=== PATIENT | female | born 1955 | race Caucasian/White ===

== ENCOUNTER 2016-06-16 00:27 | Observation (INO) | payer OTHER ==
[~2016-06-16] VITALS: Ht 170.2 cm; Wt 79.1 kg
[~2016-06-16 00:27] MED LIST: ADVIL200 MG PO; ASPIR-LOW81 MG PO; ATORVASTATIN CA80 MG PO; FOLIC ACID1 MG PO; LORTAB 5-325 M1 EACH PO; MOBIC15 MG PO; NOHOMEMEDS; THIAMINE HCL100 MG PO; TOPIRAMATE25 MG PO; TRIBENZOR 20-51 EAC1 PO; TYLENOL PM1 CAPLET PO
[2016-06-16 00:55] LABS: HEMATOCRIT 44.5 % (36.0-46.0); MCH 29.7 PG (29.0-34.0); MCHC 32.6 G/DL (30.0-36.0); MCV 91.2 FL (83-99); MEAN PLAT.VOLUME 8.5 uM^3 (9.5-12.4); PLATELET COUNT 599 K/uL (156-360); RBC DIS.WIDTH-CV 12.8 % (11.8-14.6); RBC DIS.WIDTH-SD 42.7 % (39-53); RED BLOOD COUNT 4.88 M/uL (3.80-5.20); WHITE BLOOD COUNT 10.3 K/uL (4.1-10.2)
[2016-06-16 01:20] LABS: CHLORIDE 94 mEq/L (99-109); POTASSIUM 4.1 mEq/L (3.7-5.4); SODIUM 127 mEq/L (136-147)
[2016-06-16 01:22] LABS: GLUCOSE 88 mg/dL (70-99)
[2016-06-16 01:23] LABS: ANION GAP 15 MEQ/L (2-14)
[2016-06-16 01:26] LABS: GFR ESTIMATE (CALCULATED) > 59 mL/min/
[2016-06-16 01:27] LABS: D-DIMER ELISA 0.27 mg/L FEU (< 0.57); UREA NITROGEN (BUN) 11 mg/dL (9-23)
[2016-06-16 01:35] LABS: TROP-I INTERPRETATION NEGATIVE; TROPONIN-I < 0.01 ng/mL (0.0-0.30)
[2016-06-16] MEDS ORDERED: ASPIR 8181 M1 PO (01:52)
[2016-06-16 07:28] LABS: TROP-I INTERPRETATION NEGATIVE; TROPONIN-I < 0.01 ng/mL (0.0-0.30)
[2016-06-16 12:36] VITALS: BP 137/92
[2016-06-16 13:30] LABS: TROP-I INTERPRETATION NEGATIVE; TROPONIN-I < 0.01 ng/mL (0.0-0.30)
[2016-06-16 15:37] VITALS: BP 192/112
[2016-06-16] MEDS ORDERED: HYDRALAZINE HCL25 MG PO (16:13)
[2016-06-16 16:46] VITALS: BP 133/77
[2016-06-16 16:54] LABS: ANION GAP 8 MEQ/L (2-14); CHLORIDE 98 MEQ/L (99-109); POTASSIUM 4.2 MEQ/L (3.7-5.4); SAMPLE HEMOLYSIS CHECK 0; SAMPLE ICTERIC CHECK 0; SAMPLE LIPEMIA CHECK 0; SODIUM 133 MEQ/L (136-147)
[2016-06-16 17:00] LABS: GFR ESTIMATE (CALCULATED) > 59 mL/min/; GLUCOSE 124 mg/dL (70-99); UREA NITROGEN (BUN) 13 mg/dL (9-23)
== END 2016-06-16 18:15 | disposition home or self-care (01) ==
LOC: EME → EDBD 00:27 → EME 00:27 → EDOF 02:44 → 5WEST 12:25
PROVIDERS: Emergency Medicine; Internal Medicine; Physician Assistant
DX: R07.89 Other chest pain (principal); I16.0 Hypertensive urgency; I10 Essential (primary) hypertension; E86.0 Dehydration; E87.1 Hypo-osmolality and hyponatremia; J45.909 Unspecified asthma, uncomplicated; F41.9 Anxiety disorder, unspecified; F17.210 Nicotine dependence, cigarettes, uncomplicated
CPT/HCPCS: 71020; 80048; 80048 91; 84484; 85027; 85379; 93005; 99281; 99285; G0378; J0360; J1644; Q0177

== ENCOUNTER 2017-03-23 17:21 | Inpatient (IN) | payer OTHER ==
[~2017-03-23] VITALS: Ht 170.2 cm; Wt 69.0 kg
[~2017-03-23 17:21] MED LIST changes: +ASPIR 8181 M1 PO; +HYDRALAZINE HCL25 MG PO
[2017-03-23 18:38] LABS: HEMATOCRIT 50.8 % (36.0-46.0); HEMOGLOBIN 16.9 G/DL (11.9-15.5); MCH 30.2 PG (29.0-34.0); MCHC 33.3 G/DL (30.0-36.0); MCV 90.9 FL (83-99); PLATELET COUNT 937 K/uL (156-360); RBC DIS.WIDTH-CV 13.3 % (11.8-14.6); RBC DIS.WIDTH-SD 44.6 % (39-53); RED BLOOD COUNT 5.59 M/uL (3.80-5.20); WHITE BLOOD COUNT 14.5 K/uL (4.1-10.2)
[2017-03-23 18:45] LABS: CHLORIDE 95 mEq/L (99-109); POTASSIUM 3.2 mEq/L (3.7-5.4); SODIUM 135 mEq/L (136-147)
[2017-03-23 18:47] LABS: GLUCOSE 183 mg/dL (70-99)
[2017-03-23 18:51] LABS: GFR ESTIMATE (CALCULATED) > 59 mL/min/
[2017-03-23 18:52] LABS: UREA NITROGEN (BUN) 15 mg/dL (9-23)
[2017-03-23 22:05] LABS: INTER. NORMALIZED RATIO 1.1
[2017-03-23 22:08] LABS: PTT 36.8 SEC (25-37)
[2017-03-23 22:19] LABS: TROP-I INTERPRETATION NEGATIVE; TROPONIN-I 0.01 ng/mL (0.0-0.30)
[2017-03-23 22:49] LABS: APPEARANCE CLOUDY ((CLEAR)); BILIRUBIN SMALL; BLOOD NEGATIVE; COLOR AMBER ((YELLOW)); GLUCOSE (STRIP) NEGATIVE; KETONES 20; LEUKOCYTES MODERATE; NITRITE NEGATIVE; PROTEIN (STRIP) 100; SPECIFIC GRAVITY 1.023 (1.000-1.030)
[2017-03-23 23:13] LABS: RED BLOOD CELLS 0-5 /HPF (0-5)
[2017-03-23 23:14] LABS: BACTERIA 1+ /HPF; CALCIUM OXALATE CRYSTALS RARE /HPF; EPITHELIAL CELLS RARE /HPF; MUCUS NONE SEEN /LPF; UCUL ADDED? YES
[2017-03-23 23:15] LABS: TRIPLE PHOSPHATE CRYSTALS RARE /HPF
[2017-03-23 23:19] LABS: HDL CHOLESTEROL 72 MG/DL (Desirable>=50); LDL CHOLESTEROL 167 mg/dL (Desirable<100); NON-HDL CHOLESTEROL 185 mg/dL (Desirable<160); TOTAL CHOLESTEROL 257 mg/dL (Desirable<200); TRIGLYCERIDES 88 MG/DL (Normal: <150)
[2017-03-23] MEDS ORDERED: ADVIL,NUPRIN,M200 MG PO (23:37)
[2017-03-23] MEDS ORDERED: [UNRECOGNIZED DRUG - OTHER] PO (23:37)
[2017-03-24 01:28] LABS: MAGNESIUM 2.1 mg/dl (1.3-2.7)
[2017-03-24 01:44] LABS: SERUM ETHYL ALCOHOL < 10 mg/dL
[2017-03-24 03:09] LABS: HEMATOCRIT 47.7 % (36.0-46.0); HEMOGLOBIN 16.1 G/DL (11.9-15.5); MCH 30.1 PG (29.0-34.0); MCHC 33.8 G/DL (30.0-36.0); MCV 89.3 FL (83-99); PLATELET COUNT 885 K/uL (156-360); RBC DIS.WIDTH-CV 13.4 % (11.8-14.6); RBC DIS.WIDTH-SD 43.8 % (39-53); RED BLOOD COUNT 5.34 M/uL (3.80-5.20); WHITE BLOOD COUNT 17.2 K/uL (4.1-10.2)
[2017-03-24 03:19] LABS: CHLORIDE 97 mEq/L (99-109); POTASSIUM 3.7 mEq/L (3.7-5.4); SODIUM 134 mEq/L (136-147)
[2017-03-24 03:21] LABS: GLUCOSE 125 mg/dL (70-99)
[2017-03-24 03:24] LABS: CREATININE 0.8 mg/dL (0.6-1.3); GFR ESTIMATE (CALCULATED) > 59 mL/min/
[2017-03-24 03:25] LABS: UREA NITROGEN (BUN) 18 mg/dL (9-23)
[2017-03-24 04:59] VITALS: BP 164/95
[2017-03-24 06:55] LABS: Estimated Average Glucose 105 mg/dL (70-123); HEMOGLOBIN A1c (GLYCOHEMOGLOB) 5.3 % HGB (Below 5.7)
[2017-03-24 07:19] VITALS: BP 164/107
[2017-03-24 12:25] VITALS: BP 160/102
[2017-03-24 16:11] VITALS: BP 171/106
[2017-03-24 19:40] VITALS: BP 132/80
[2017-03-24 23:58] VITALS: BP 183/131
[2017-03-25 01:24] VITALS: BP 118/80
[2017-03-25 03:33] VITALS: BP 111/56
[2017-03-25 08:00] VITALS: BP 185/90
[2017-03-25 08:13] LABS: HEMATOCRIT 46.7 % (36.0-46.0); HEMOGLOBIN 15.7 G/DL (11.9-15.5); MCH 30.5 PG (29.0-34.0); MCHC 33.6 G/DL (30.0-36.0); MCV 90.7 FL (83-99); PLATELET COUNT 788 K/uL (156-360); RBC DIS.WIDTH-CV 13.4 % (11.8-14.6); RBC DIS.WIDTH-SD 45.5 % (39-53); RED BLOOD COUNT 5.15 M/uL (3.80-5.20)
[2017-03-25 08:51] LABS: CHLORIDE 97 MEQ/L (99-109); CREATININE 0.8 MG/DL (0.6-1.3); GFR ESTIMATE (CALCULATED) > 59 mL/min/; GLUCOSE 105 mg/dL (70-99); POTASSIUM 4.4 MEQ/L (3.7-5.4); SODIUM 131 MEQ/L (136-147); UREA NITROGEN (BUN) 23 mg/dL (9-23)
[2017-03-25 16:00] VITALS: BP 143/93
[2017-03-25 20:34] VITALS: BP 182/100
[2017-03-25 23:43] VITALS: BP 163/95
[2017-03-26 03:58] VITALS: BP 137/93
[2017-03-26 08:00] VITALS: BP 174/97
[2017-03-26 09:59] LABS: BASOPHIL (%) 1.3 % (0-1); BASOPHIL COUNT 0.1 K/uL (0-0.1); EOSINOPHIL (%) 2.6 % (0-5); EOSINOPHIL COUNT 0.3 K/uL (0-0.3); HEMATOCRIT 46.3 % (36.0-46.0); HEMOGLOBIN 15.4 G/DL (11.9-15.5); IMMATURE GRANULOCYTE (%) 0.5 % (0.0-0.7); LYMPHOCYTE (%) 23.9 % (15-42); LYMPHOCYTE COUNT 2.6 K/uL (1.0-2.8); MCH 30.3 PG (29.0-34.0); MCHC 33.3 G/DL (30.0-36.0); MCV 91.1 FL (83-99); MONOCYTE (%) 5.3 % (3-12); MONOCYTE COUNT 0.6 K/uL (0-0.8); NEUTROPHIL (%) 66.4 % (45-76); NEUTROPHIL COUNT 7.3 K/uL (1.8-6.4); PLATELET COUNT 816 K/uL (156-360); RBC DIS.WIDTH-CV 13.5 % (11.8-14.6); RBC DIS.WIDTH-SD 45.5 % (39-53); RED BLOOD COUNT 5.08 M/uL (3.80-5.20)
[2017-03-26 12:00] VITALS: BP 135/92
[2017-03-26 16:00] VITALS: BP 185/96
[2017-03-26 16:47] VITALS: BP 192/117
[2017-03-26 20:11] VITALS: BP 175/102
[2017-03-27 00:06] VITALS: BP 211/122
[2017-03-27 02:11] VITALS: BP 167/116
[2017-03-27 04:13] VITALS: BP 116/88
[2017-03-27 06:13] LABS: BASOPHIL COUNT 0.1 K/uL (0-0.1); EOSINOPHIL (%) 3.1 % (0-5); EOSINOPHIL COUNT 0.4 K/uL (0-0.3); HEMATOCRIT 45.8 % (36.0-46.0); HEMOGLOBIN 14.9 G/DL (11.9-15.5); IMMATURE GRANULOCYTE (%) 0.7 % (0.0-0.7); LYMPHOCYTE (%) 26.9 % (15-42); LYMPHOCYTE COUNT 3.6 K/uL (1.0-2.8); MCH 29.7 PG (29.0-34.0); MCHC 32.5 G/DL (30.0-36.0); MCV 91.4 FL (83-99); MONOCYTE (%) 6.3 % (3-12); MONOCYTE COUNT 0.9 K/uL (0-0.8); NEUTROPHIL COUNT 8.3 K/uL (1.8-6.4); PLATELET COUNT 839 K/uL (156-360); RBC DIS.WIDTH-CV 13.4 % (11.8-14.6); RED BLOOD COUNT 5.01 M/uL (3.80-5.20); WHITE BLOOD COUNT 13.4 K/uL (4.1-10.2)
[2017-03-27 06:39] LABS: CHLORIDE 98 MEQ/L (99-109); CREATININE 0.9 MG/DL (0.6-1.3); GFR ESTIMATE (CALCULATED) > 59 mL/min/; GLUCOSE 100 mg/dL (70-99); POTASSIUM 3.8 MEQ/L (3.7-5.4); SODIUM 134 MEQ/L (136-147); UREA NITROGEN (BUN) 25 mg/dL (9-23)
[2017-03-27 07:10] VITALS: BP 136/81
[2017-03-27 11:00] VITALS: BP 131/85
[2017-03-28 00:04] VITALS: BP 175/85
[2017-03-28 07:05] VITALS: BP 129/87
[2017-03-28] MEDS ORDERED: Thiamine,Vitamin B1 PO (10:26)
[2017-03-28] MEDS ORDERED: ATORVASTATIN CA40 MG PO (10:26)
[2017-03-28] MEDS ORDERED: FOLIC ACID1 MG PO (10:26)
[2017-03-28] MEDS ORDERED: THERAGRAN1 TABLET PO (10:26)
[2017-03-28] MEDS ORDERED: METOPROLOL SUCC25 MG PO (10:26)
[2017-03-28] MEDS ORDERED: HYDREA500 MG PO ×2 (10:26)
[2017-03-28 11:07] LABS: JAK2 Mutation Result DETECTED (())
[2017-03-28] MEDS ORDERED: NICOTINE PATCH1 EAC1 TD (12:51)
== END 2017-03-28 11:46 | DRG 65 ==
LOC: RME 17:21 → EME 17:21 → 5SOUTH 03-24 00:38 → EDOF 03-24 00:38 → ENRESERV 03-24 00:40 → 5SOUTH 03-24 04:29
PROVIDERS: Hospitalist; Internal Medicine; Internal Medicine Hematology & Oncology; Nurse Practitioner Family; Physician Assistant Medical
DX: I63.311 Cerebral infarction due to thrombosis of right middle cerebral artery (principal); G81.94 Hemiplegia, unspecified affecting left nondominant side; I10 Essential (primary) hypertension; J44.9 Chronic obstructive pulmonary disease, unspecified; R29.810 Facial weakness; F10.20 Alcohol dependence, uncomplicated; F17.210 Nicotine dependence, cigarettes, uncomplicated; D75.1 Secondary polycythemia; E78.5 Hyperlipidemia, unspecified; E87.6 Hypokalemia; Z79.82 Long term (current) use of aspirin; Z91.19 Patient's noncompliance with other medical treatment and regimen; Z91.14 Patient's other noncompliance with medication regimen; C94.6 Myelodysplastic disease, not elsewhere classified; F41.9 Anxiety disorder, unspecified; D47.3 Essential (hemorrhagic) thrombocythemia
CPT/HCPCS: 70450; 70551; 71045; 71046; 73030; 73502; 73560; 80048; 80061; 81003; 81270 90; 83036; 83605; 83735; 84484; 85025; 85027; 85379; 85610; 85730; 87086; 92526 GN; 92610 GN; 93005; 93306; 93880; 93971; 97530 GO; 97530 GP; 99281; 99285; G0480; J0360; J0696; J1644; J2060; J2405

== ENCOUNTER 2017-03-28 12:06 | Inpatient (IN) | payer OTHER ==
[~2017-03-28] VITALS: Ht 165.1 cm; Wt 70.8 kg
[~2017-03-28 12:06] MED LIST changes: +ADVIL,NUPRIN,M200 MG PO; +ATORVASTATIN CA40 MG PO; +HYDREA500 MG PO; +METOPROLOL SUCC25 MG PO; +THERAGRAN1 TABLET PO; +Thiamine,Vitamin B1 PO; +[UNRECOGNIZED DRUG - OTHER] PO
[2017-03-28 12:20] VITALS: BP 134/101
[2017-03-28] MEDS ORDERED: NICOTINE PATCH1 EAC1 TD (12:51)
[2017-03-28 14:33] LABS: BASOPHIL (%) 0.8 % (0-1); BASOPHIL COUNT 0.1 K/uL (0-0.1); EOSINOPHIL (%) 2.4 % (0-5); EOSINOPHIL COUNT 0.3 K/uL (0-0.3); HEMATOCRIT 45.2 % (36.0-46.0); HEMOGLOBIN 14.7 G/DL (11.9-15.5); IMMATURE GRANULOCYTE (%) 0.4 % (0.0-0.7); LYMPHOCYTE (%) 14.8 % (15-42); LYMPHOCYTE COUNT 1.6 K/uL (1.0-2.8); MCH 29.4 PG (29.0-34.0); MCHC 32.5 G/DL (30.0-36.0); MCV 90.4 FL (83-99); MONOCYTE (%) 4.5 % (3-12); MONOCYTE COUNT 0.5 K/uL (0-0.8); NEUTROPHIL (%) 77.1 % (45-76); NEUTROPHIL COUNT 8.3 K/uL (1.8-6.4); PLATELET COUNT 841 K/uL (156-360); RBC DIS.WIDTH-CV 13.3 % (11.8-14.6); RBC DIS.WIDTH-SD 43.8 % (39-53); WHITE BLOOD COUNT 10.7 K/uL (4.1-10.2)
[2017-03-28 15:53] VITALS: BP 138/84
[2017-03-28 18:21] LABS: APPEARANCE SL.HAZY ((CLEAR)); BILIRUBIN NEGATIVE; BLOOD NEGATIVE; COLOR YELLOW ((YELLOW)); GLUCOSE (STRIP) NEGATIVE; KETONES NEGATIVE; LEUKOCYTES MODERATE; NITRITE NEGATIVE; PROTEIN (STRIP) NEGATIVE; SPECIFIC GRAVITY 1.021 (1.000-1.030)
[2017-03-28 18:25] LABS: BACTERIA RARE /HPF; EPITHELIAL CELLS 2+ /HPF; HYALINE CASTS 0-5 /LPF; MUCUS TRACE /LPF; RED BLOOD CELLS 0-5 /HPF (0-5); WHITE BLOOD CELLS TNTC /HPF (0-5)
[2017-03-28 23:14] VITALS: BP 176/94
[2017-03-29 05:03] VITALS: BP 135/74
[2017-03-29 05:43] LABS: HEMATOCRIT 44.3 % (36.0-46.0); HEMOGLOBIN 14.7 G/DL (11.9-15.5); MCH 30.2 PG (29.0-34.0); MCHC 33.2 G/DL (30.0-36.0); PLATELET COUNT 735 K/uL (156-360); RBC DIS.WIDTH-CV 13.5 % (11.8-14.6); RBC DIS.WIDTH-SD 44.2 % (39-53); RED BLOOD COUNT 4.87 M/uL (3.80-5.20); WHITE BLOOD COUNT 10.8 K/uL (4.1-10.2)
[2017-03-29 06:08] LABS: ALBUMIN 3.6 G/DL (3.2-4.8); ALKALINE PHOSPHATASE 60 IU/L (3-129); ALT (GPT) 20 IU/L (3-49); AST (GOT) 30 IU/L (2-34); CHLORIDE 99 MEQ/L (99-109); CREATININE 0.8 MG/DL (0.6-1.3); GFR ESTIMATE (CALCULATED) > 59 mL/min/; GLUCOSE 94 mg/dL (70-99); POTASSIUM 4.1 MEQ/L (3.7-5.4); SODIUM 133 MEQ/L (136-147); TOTAL BILIRUBIN 0.5 MG/DL (0.0-1.0); TOTAL PROTEIN 6.1 G/DL (6.4-8.3); UREA NITROGEN (BUN) 24 mg/dL (9-23)
[2017-03-29 16:39] VITALS: BP 184/104
[2017-03-29 17:07] VITALS: BP 171/93
[2017-03-29 18:38] VITALS: BP 150/92
[2017-03-30 05:05] VITALS: BP 140/72
[2017-03-30 15:52] VITALS: BP 164/79
[2017-03-31 05:02] VITALS: BP 139/73
[2017-03-31 08:47] LABS: BASOPHIL COUNT 0.1 K/uL (0-0.1); EOSINOPHIL (%) 2.4 % (0-5); EOSINOPHIL COUNT 0.2 K/uL (0-0.3); HEMATOCRIT 43.8 % (36.0-46.0); HEMOGLOBIN 14.6 G/DL (11.9-15.5); IMMATURE GRANULOCYTE (%) 0.3 % (0.0-0.7); LYMPHOCYTE (%) 32.2 % (15-42); MCH 30.8 PG (29.0-34.0); MCHC 33.3 G/DL (30.0-36.0); MCV 92.4 FL (83-99); MONOCYTE (%) 4.5 % (3-12); MONOCYTE COUNT 0.3 K/uL (0-0.8); NEUTROPHIL (%) 59.6 % (45-76); NEUTROPHIL COUNT 3.7 K/uL (1.8-6.4); PLATELET COUNT 830 K/uL (156-360); RBC DIS.WIDTH-CV 13.6 % (11.8-14.6); RBC DIS.WIDTH-SD 45.4 % (39-53); RED BLOOD COUNT 4.74 M/uL (3.80-5.20); WHITE BLOOD COUNT 6.2 K/uL (4.1-10.2)
[2017-03-31 16:35] VITALS: BP 170/102
[2017-03-31 17:28] VITALS: BP 164/98
[2017-04-01 05:18] VITALS: BP 119/81
[2017-04-01 08:50] LABS: BASOPHIL (%) 0.9 % (0-1); BASOPHIL COUNT 0.1 K/uL (0-0.1); EOSINOPHIL COUNT 0.1 K/uL (0-0.3); HEMATOCRIT 42.7 % (36.0-46.0); HEMOGLOBIN 13.9 G/DL (11.9-15.5); IMMATURE GRANULOCYTE (%) 0.4 % (0.0-0.7); LYMPHOCYTE (%) 30.5 % (15-42); LYMPHOCYTE COUNT 2.1 K/uL (1.0-2.8); MCH 30.2 PG (29.0-34.0); MCHC 32.6 G/DL (30.0-36.0); MCV 92.8 FL (83-99); MONOCYTE (%) 3.4 % (3-12); MONOCYTE COUNT 0.2 K/uL (0-0.8); NEUTROPHIL (%) 62.8 % (45-76); NEUTROPHIL COUNT 4.3 K/uL (1.8-6.4); PLATELET COUNT 787 K/uL (156-360); RBC DIS.WIDTH-CV 13.6 % (11.8-14.6); RBC DIS.WIDTH-SD 45.1 % (39-53); WHITE BLOOD COUNT 6.9 K/uL (4.1-10.2)
[2017-04-01 15:00] VITALS: BP 178/104
[2017-04-02 05:56] VITALS: BP 114/76
[2017-04-02 06:08] LABS: BASOPHIL (%) 0.9 % (0-1); BASOPHIL COUNT 0.1 K/uL (0-0.1); EOSINOPHIL (%) 1.7 % (0-5); EOSINOPHIL COUNT 0.1 K/uL (0-0.3); HEMATOCRIT 39.4 % (36.0-46.0); IMMATURE GRANULOCYTE (%) 1.1 % (0.0-0.7); LYMPHOCYTE (%) 25.2 % (15-42); LYMPHOCYTE COUNT 1.6 K/uL (1.0-2.8); MONOCYTE COUNT 0.1 K/uL (0-0.8); NEUTROPHIL (%) 69.1 % (45-76); NEUTROPHIL COUNT 4.4 K/uL (1.8-6.4); PLATELET COUNT 762 K/uL (156-360); RBC DIS.WIDTH-CV 13.3 % (11.8-14.6); RBC DIS.WIDTH-SD 43.1 % (39-53); RED BLOOD COUNT 4.33 M/uL (3.80-5.20); WHITE BLOOD COUNT 6.4 K/uL (4.1-10.2)
[2017-04-02 15:34] VITALS: BP 185/104
[2017-04-02 16:00] VITALS: BP 140/75
[2017-04-03 05:50] VITALS: BP 127/72
[2017-04-03 07:53] LABS: HEMATOCRIT 40.3 % (36.0-46.0); MCH 29.4 PG (29.0-34.0); MCHC 32.3 G/DL (30.0-36.0); MCV 91.2 FL (83-99); PLATELET COUNT 628 K/uL (156-360); RBC DIS.WIDTH-CV 13.5 % (11.8-14.6); RBC DIS.WIDTH-SD 43.4 % (39-53); RED BLOOD COUNT 4.42 M/uL (3.80-5.20); WHITE BLOOD COUNT 5.2 K/uL (4.1-10.2)
[2017-04-03 08:17] LABS: BASOPHIL COUNT 0.1 K/uL (0-0.1); EOSINOPHIL (%) 1.9 % (0-5); EOSINOPHIL COUNT 0.1 K/uL (0-0.3); IMMATURE GRANULOCYTE (%) 0.4 % (0.0-0.7); LYMPHOCYTE (%) 28.9 % (15-42); LYMPHOCYTE COUNT 1.5 K/uL (1.0-2.8); MONOCYTE (%) 2.1 % (3-12); MONOCYTE COUNT 0.1 K/uL (0-0.8); NEUTROPHIL (%) 65.7 % (45-76); NEUTROPHIL COUNT 3.4 K/uL (1.8-6.4)
[2017-04-03 15:39] VITALS: BP 144/83
[2017-04-04 06:15] VITALS: BP 135/85
[2017-04-04 06:32] LABS: HEMATOCRIT 39.1 % (36.0-46.0); HEMOGLOBIN 12.6 G/DL (11.9-15.5); MCH 29.5 PG (29.0-34.0); MCHC 32.2 G/DL (30.0-36.0); MCV 91.6 FL (83-99); PLATELET COUNT 674 K/uL (156-360); RBC DIS.WIDTH-CV 13.5 % (11.8-14.6); RED BLOOD COUNT 4.27 M/uL (3.80-5.20); WHITE BLOOD COUNT 4.2 K/uL (4.1-10.2)
[2017-04-04 07:06] LABS: ABS NEUTROPHIL COUNT 2.4; ANISOCYTOSIS 1+; ATYPICAL LYMPHOCYTE 17.4 %; BASOPHILS 0.9 %; EOSINOPHIL ABS CT 0.1; EOSINOPHILS 1.7 % (0-5.0); LYMPHOCYTES 21.7 % (15.0-45.0); MACROCYTES 1+; MONOCYTES 0.9 % (0-9.0); PLAT.SUFFICIENCY INCREASED; SEG.NEUTROPHILS 57.4 % (46.0-76.0)
[2017-04-04 15:13] VITALS: BP 178/78
[2017-04-04 17:53] VITALS: BP 160/72
[2017-04-05 05:40] VITALS: BP 143/89
[2017-04-05 05:42] LABS: HEMATOCRIT 37.5 % (36.0-46.0); HEMOGLOBIN 12.5 G/DL (11.9-15.5); MCH 30.7 PG (29.0-34.0); MCHC 33.3 G/DL (30.0-36.0); MCV 92.1 FL (83-99); PLATELET COUNT 616 K/uL (156-360); RBC DIS.WIDTH-CV 13.7 % (11.8-14.6); RED BLOOD COUNT 4.07 M/uL (3.80-5.20)
[2017-04-05 06:15] LABS: ABS NEUTROPHIL COUNT 2.8; ANISOCYTOSIS 1+; ATYPICAL LYMPHOCYTE 7.9 %; BASOPHILS 0.9 %; EOSINOPHIL ABS CT 0; EOSINOPHILS 0.9 % (0-5.0); LYMPHOCYTES 34.2 % (15.0-45.0); NUCLEATED RBC'S 0.9; PLAT.SUFFICIENCY INCREASED; SEG.NEUTROPHILS 56.1 % (46.0-76.0)
[2017-04-05 16:00] VITALS: BP 152/78
[2017-04-05 21:00] VITALS: BP 166/93
[2017-04-06] VITALS (7 sets, daily range): BP systolic 118–183; BP diastolic 71–100
[2017-04-06 04:51] LABS: HEMOGLOBIN 12.9 G/DL (11.9-15.5); MCH 31.1 PG (29.0-34.0); MCHC 33.9 G/DL (30.0-36.0); MCV 91.6 FL (83-99); PLATELET COUNT 540 K/uL (156-360); RBC DIS.WIDTH-CV 13.7 % (11.8-14.6); RBC DIS.WIDTH-SD 43.1 % (39-53); RED BLOOD COUNT 4.15 M/uL (3.80-5.20); WHITE BLOOD COUNT 3.7 K/uL (4.1-10.2)
[2017-04-06 05:39] LABS: BASOPHIL (%) 0.8 % (0-1); EOSINOPHIL (%) 1.6 % (0-5); EOSINOPHIL COUNT 0.1 K/uL (0-0.3); IMMATURE GRANULOCYTE (%) 0.3 % (0.0-0.7); LYMPHOCYTE (%) 46.5 % (15-42); LYMPHOCYTE COUNT 1.7 K/uL (1.0-2.8); MONOCYTE (%) 1.6 % (3-12); MONOCYTE COUNT 0.1 K/uL (0-0.8); NEUTROPHIL (%) 49.2 % (45-76); NEUTROPHIL COUNT 1.8 K/uL (1.8-6.4)
[2017-04-07 05:51] VITALS: BP 142/90
[2017-04-07 15:07] VITALS: BP 146/88
[2017-04-08 04:00] VITALS: BP 142/66
[2017-04-08 05:32] VITALS: BP 131/69
[2017-04-08 15:07] VITALS: BP 176/106
[2017-04-08 15:15] VITALS: BP 160/100
[2017-04-08 21:36] VITALS: BP 160/74
[2017-04-09 04:46] VITALS: BP 162/98
[2017-04-09 05:46] LABS: HEMATOCRIT 36.1 % (36.0-46.0); HEMOGLOBIN 11.7 G/DL (11.9-15.5); MCH 29.7 PG (29.0-34.0); MCHC 32.4 G/DL (30.0-36.0); MCV 91.6 FL (83-99); RBC DIS.WIDTH-CV 13.8 % (11.8-14.6); RBC DIS.WIDTH-SD 42.5 % (39-53); RED BLOOD COUNT 3.94 M/uL (3.80-5.20); WHITE BLOOD COUNT 2.5 K/uL (4.1-10.2)
[2017-04-09 06:15] LABS: ALBUMIN 3.6 G/DL (3.2-4.8); ALKALINE PHOSPHATASE 93 IU/L (3-129); ALT (GPT) 63 IU/L (3-49); AST (GOT) 50 IU/L (2-34); CHLORIDE 102 MEQ/L (99-109); CREATININE 0.7 MG/DL (0.6-1.3); GFR ESTIMATE (CALCULATED) > 59 mL/min/; GLUCOSE 99 mg/dL (70-99); POTASSIUM 3.8 MEQ/L (3.7-5.4); SODIUM 136 MEQ/L (136-147); TOTAL BILIRUBIN 0.5 MG/DL (0.0-1.0); TOTAL PROTEIN 5.6 G/DL (6.4-8.3); UREA NITROGEN (BUN) 16 mg/dL (9-23)
[2017-04-09 06:26] LABS: ABS NEUTROPHIL COUNT 0.7; ANISOCYTOSIS 1+; ATYPICAL LYMPHOCYTE 7.2 %; BASOPHILS 0.9 %; EOSINOPHIL ABS CT 0; MONOCYTES 0.9 % (0-9.0); NUCLEATED RBC'S 1.8; PLAT.SUFFICIENCY INCREASED; PLATELET COUNT 378 K/uL (156-360); SMUDGE CELLS 8.1
[2017-04-09 06:27] LABS: LYMPHOCYTES 61.3 % (15.0-45.0); SEG.NEUTROPHILS 29.7 % (46.0-76.0)
[2017-04-09 11:58] VITALS: BP 191/102
[2017-04-09 13:21] VITALS: BP 192/105
[2017-04-09 14:02] VITALS: BP 146/82
[2017-04-09 15:49] VITALS: BP 142/78
[2017-04-10 06:03] VITALS: BP 162/93
[2017-04-10 06:09] LABS: CHLORIDE 104 MEQ/L (99-109); CREATININE 0.6 MG/DL (0.6-1.3); GFR ESTIMATE (CALCULATED) > 59 mL/min/; GLUCOSE 93 mg/dL (70-99); POTASSIUM 3.4 MEQ/L (3.7-5.4); SODIUM 137 MEQ/L (136-147); UREA NITROGEN (BUN) 14 mg/dL (9-23)
[2017-04-10 09:35] VITALS: BP 132/76
[2017-04-10 15:00] VITALS: BP 130/94
[2017-04-11 06:05] LABS: BASOPHIL (%) 1.1 % (0-1); EOSINOPHIL (%) 1.5 % (0-5); HEMATOCRIT 35.6 % (36.0-46.0); HEMOGLOBIN 11.6 G/DL (11.9-15.5); IMMATURE GRANULOCYTE (%) 0.4 % (0.0-0.7); LYMPHOCYTE (%) 67.3 % (15-42); LYMPHOCYTE COUNT 1.8 K/uL (1.0-2.8); MCH 29.8 PG (29.0-34.0); MCHC 32.6 G/DL (30.0-36.0); MCV 91.5 FL (83-99); MONOCYTE (%) 8.1 % (3-12); MONOCYTE COUNT 0.2 K/uL (0-0.8); NEUTROPHIL (%) 21.6 % (45-76); NEUTROPHIL COUNT 0.6 K/uL (1.8-6.4); RBC DIS.WIDTH-CV 14.2 % (11.8-14.6); RBC DIS.WIDTH-SD 42.5 % (39-53); RED BLOOD COUNT 3.89 M/uL (3.80-5.20); WHITE BLOOD COUNT 2.7 K/uL (4.1-10.2)
[2017-04-11 06:22] VITALS: BP 125/80
[2017-04-11 06:52] LABS: PLAT.SUFFICIENCY ADEQUATE
[2017-04-11 06:53] LABS: PLATELET COUNT 257 K/uL (156-360)
[2017-04-11 16:38] VITALS: BP 180/98
[2017-04-12 05:16] VITALS: BP 122/70
[2017-04-12 15:00] VITALS: BP 168/92
[2017-04-12 15:33] LABS: CHLORIDE 102 MEQ/L (99-109); CREATININE 0.6 MG/DL (0.6-1.3); GFR ESTIMATE (CALCULATED) > 59 mL/min/; GLUCOSE 102 mg/dL (70-99); SODIUM 134 MEQ/L (136-147); UREA NITROGEN (BUN) 14 mg/dL (9-23)
[2017-04-12 15:35] LABS: POTASSIUM 4.1 MEQ/L (3.7-5.4)
[2017-04-12 17:45] VITALS: BP 152/90
[2017-04-13 05:35] VITALS: BP 141/82
[2017-04-13 06:06] LABS: BASOPHIL (%) 1.3 % (0-1); EOSINOPHIL COUNT 0.1 K/uL (0-0.3); HEMATOCRIT 36.6 % (36.0-46.0); IMMATURE GRANULOCYTE (%) 0.3 % (0.0-0.7); LYMPHOCYTE (%) 61.4 % (15-42); LYMPHOCYTE COUNT 1.9 K/uL (1.0-2.8); MCHC 32.8 G/DL (30.0-36.0); MCV 91.5 FL (83-99); MONOCYTE (%) 10.2 % (3-12); MONOCYTE COUNT 0.3 K/uL (0-0.8); NEUTROPHIL (%) 24.8 % (45-76); NEUTROPHIL COUNT 0.8 K/uL (1.8-6.4); PLATELET COUNT 189 K/uL (156-360); RBC DIS.WIDTH-CV 14.1 % (11.8-14.6); RBC DIS.WIDTH-SD 42.2 % (39-53)
[2017-04-13 15:51] VITALS: BP 130/70
[2017-04-14 05:53] VITALS: BP 117/62
[2017-04-14] MEDS ORDERED: LOPRESSOR25 MG PO (11:35)
[2017-04-14] MEDS ORDERED: HEPARIN SO5000 UNIT4 SC (11:35)
[2017-04-14] MEDS ORDERED: IBUPROFEN400 MG PO (11:36)
[2017-04-14] MEDS ORDERED: LISINOPRIL5 MG PO (11:36)
[2017-04-14] MEDS ORDERED: ESCITALOPRAM OX10 MG PO (11:37)
[2017-04-14] MEDS ORDERED: TRAZODONE HCL50 MG PO (11:37)
[2017-04-14] MEDS ORDERED: DOCUSATE SODIU100 MG PO (11:37)
[2017-04-14] MEDS ORDERED: TYLENOL REGULA325 MG PO (11:37)
[2017-04-14] MEDS ORDERED: Thiamine,Vitamin B1 PO (11:38)
[2017-04-14 15:13] VITALS: BP 162/90
[2017-04-15 05:05] VITALS: BP 128/83
[2017-04-15 05:22] LABS: BASOPHIL (%) 1.2 % (0-1); BASOPHIL COUNT 0.1 K/uL (0-0.1); EOSINOPHIL (%) 2.4 % (0-5); EOSINOPHIL COUNT 0.1 K/uL (0-0.3); HEMOGLOBIN 11.8 G/DL (11.9-15.5); IMMATURE GRANULOCYTE (%) 0.5 % (0.0-0.7); LYMPHOCYTE (%) 50.2 % (15-42); LYMPHOCYTE COUNT 2.1 K/uL (1.0-2.8); MCH 30.7 PG (29.0-34.0); MCHC 33.7 G/DL (30.0-36.0); MCV 91.1 FL (83-99); MONOCYTE COUNT 0.5 K/uL (0-0.8); NEUTROPHIL (%) 33.7 % (45-76); NEUTROPHIL COUNT 1.4 K/uL (1.8-6.4); PLATELET COUNT 143 K/uL (156-360); RBC DIS.WIDTH-CV 14.4 % (11.8-14.6); RBC DIS.WIDTH-SD 42.5 % (39-53); RED BLOOD COUNT 3.84 M/uL (3.80-5.20); WHITE BLOOD COUNT 4.2 K/uL (4.1-10.2)
[2017-04-15 15:00] VITALS: BP 158/82
[2017-04-16 04:19] VITALS: BP 123/58
[2017-04-16 05:14] LABS: CHLORIDE 100 mEq/L (99-109); POTASSIUM 4.3 mEq/L (3.7-5.4); SODIUM 134 mEq/L (136-147)
[2017-04-16 05:16] LABS: GLUCOSE 92 mg/dL (70-99)
[2017-04-16 05:20] LABS: CREATININE 0.7 mg/dL (0.6-1.3); GFR ESTIMATE (CALCULATED) > 59 mL/min/
[2017-04-16 05:21] LABS: UREA NITROGEN (BUN) 8 mg/dL (9-23)
== END 2017-04-16 11:40 | DRG 57 ==
LOC: 3WEST 12:06 → ENPENDDIS 04-12 → 3WEST 04-16 07:02
PROVIDERS: Internal Medicine; Internal Medicine Cardiovascular Disease; Internal Medicine Hematology & Oncology; Physical Medicine & Rehabilitation Pain Medicine
PROC: F07M0ZZ Range of Motion and Joint Mobility Treatment of Musculoskeletal System - Whole Body (ICD-10-PCS; principal; 2017-03-28)
DX: I69.354 Hemiplegia and hemiparesis following cerebral infarction affecting left non-dominant side (principal); R26.9 Unspecified abnormalities of gait and mobility; E87.1 Hypo-osmolality and hyponatremia; D45 Polycythemia vera; E87.6 Hypokalemia; M79.662 Pain in left lower leg; R05 Cough; E78.5 Hyperlipidemia, unspecified; I10 Essential (primary) hypertension; D72.829 Elevated white blood cell count, unspecified; F41.8 Other specified anxiety disorders; M26.609 Unspecified temporomandibular joint disorder, unspecified side; H54.8 Legal blindness, as defined in USA; F10.20 Alcohol dependence, uncomplicated; R32 Unspecified urinary incontinence; M79.673 Pain in unspecified foot; M79.676 Pain in unspecified toe(s); F17.210 Nicotine dependence, cigarettes, uncomplicated; M25.512 Pain in left shoulder; Z79.82 Long term (current) use of aspirin; Z86.73 Personal history of transient ischemic attack (TIA), and cerebral infarction without residual deficits
CPT/HCPCS: 71045; 73030; 80048; 80053; 81003; 85025; 85027; 87086; 93005; 93971; 97110 GO; 97112 GO; 97530 GP; J1644

== ENCOUNTER 2017-05-12 22:47 | Inpatient (IN) | payer OTHER ==
[~2017-05-12] VITALS: Ht 157.5 cm; Wt 69.5 kg
[~2017-05-12 22:47] MED LIST changes: +DOCUSATE SODIU100 MG PO; +ESCITALOPRAM OX10 MG PO; +HEPARIN SO5000 UNIT4 SC; +IBUPROFEN400 MG PO; +LISINOPRIL5 MG PO; +LOPRESSOR25 MG PO; +NICOTINE PATCH1 EAC1 TD; +TRAZODONE HCL50 MG PO; +TYLENOL REGULA325 MG PO
[2017-05-12 23:20] LABS: BASOPHIL (%) 0.5 % (0-1); BASOPHIL COUNT 0.1 K/uL (0-0.1); EOSINOPHIL (%) 0.4 % (0-5); HEMOGLOBIN 10.8 G/DL (11.9-15.5); IMMATURE GRANULOCYTE (%) 0.2 % (0.0-0.7); LYMPHOCYTE (%) 18.8 % (15-42); LYMPHOCYTE COUNT 1.8 K/uL (1.0-2.8); MCH 31.4 PG (29.0-34.0); MCHC 34.8 G/DL (30.0-36.0); MCV 90.1 FL (83-99); MONOCYTE (%) 5.6 % (3-12); MONOCYTE COUNT 0.5 K/uL (0-0.8); NEUTROPHIL (%) 74.5 % (45-76); PLATELET COUNT 535 K/uL (156-360); RBC DIS.WIDTH-CV 15.3 % (11.8-14.6); RBC DIS.WIDTH-SD 49.5 % (39-53); RED BLOOD COUNT 3.44 M/uL (3.80-5.20); WHITE BLOOD COUNT 9.4 K/uL (4.1-10.2)
[2017-05-12 23:31] LABS: PTT 30.6 SEC (25-37)
[2017-05-12 23:32] LABS: ALBUMIN 3.9 g/dL (3.2-4.8); CHLORIDE 101 mEq/L (99-109); SODIUM 135 mEq/L (136-147)
[2017-05-12 23:34] LABS: GLUCOSE 108 mg/dL (70-99); TOTAL PROTEIN 6.4 g/dL (6.4-8.3)
[2017-05-12 23:36] LABS: TOTAL BILIRUBIN 0.4 mg/dL (0.0-1.0)
[2017-05-12 23:38] LABS: ALKALINE PHOSPHATASE 100 IU/L (3-129); CREATININE 0.9 mg/dL (0.6-1.3); GFR ESTIMATE (CALCULATED) > 59 mL/min/
[2017-05-12 23:39] LABS: AST (GOT) 21 IU/L (2-34); DIRECT BILIRUBIN 0.2 mg/dL (0.0-0.3); UREA NITROGEN (BUN) 6 mg/dL (9-23)
[2017-05-12 23:40] LABS: TROP-I INTERPRETATION NEGATIVE; TROPONIN-I < 0.01 ng/mL (0.0-0.30)
[2017-05-12 23:41] LABS: ALT (GPT) 22 IU/L (3-49); LIPASE 20 U/L (1.0-51.0)
[2017-05-12 23:54] LABS: APPEARANCE SL.HAZY ((CLEAR)); BILIRUBIN NEGATIVE; BLOOD SMALL; COLOR YELLOW ((YELLOW)); GLUCOSE (STRIP) NEGATIVE; KETONES NEGATIVE; LEUKOCYTES LARGE; NITRITE POSITIVE; PROTEIN (STRIP) NEGATIVE; SPECIFIC GRAVITY 1.005 (1.000-1.030); UROBILINOGEN 0.2 MG/DL (0.2-1.0)
[2017-05-13] VITALS (8 sets, daily range): BP systolic 105–161; BP diastolic 52–85
[2017-05-13 00:24] LABS: WHITE BLOOD CELLS 30-40 /HPF (0-5)
[2017-05-13 00:25] LABS: BACTERIA 2+ /HPF; EPITHELIAL CELLS RARE /HPF; MUCUS NONE SEEN /LPF; UCUL ADDED? YES
[2017-05-13] MEDS ORDERED: LIPITOR40 MG PO (00:52)
[2017-05-13] MEDS ORDERED: LISINOPRIL5 MG PO (00:52)
[2017-05-13] MEDS ORDERED: LEXAPRO5 MG PO (00:53)
[2017-05-13] MEDS ORDERED: FOLIC ACID1 MG PO (00:54)
[2017-05-13] MEDS ORDERED: THERAGRAN1 TABLET PO (00:54)
[2017-05-13] MEDS ORDERED: THIAMINE HCL100 MG PO (00:54)
[2017-05-13] MEDS ORDERED: PROVENTIL HFA6.7 GM IH (00:55)
[2017-05-13] MEDS ORDERED: SYSTANE 0.3-0.1 EACH BOTH EYES (00:55)
[2017-05-13] MEDS ORDERED: BACLOFEN10 MG PO (00:55)
[2017-05-13 01:12] LABS: MAGNESIUM 1.7 mg/dL (1.3-2.7)
[2017-05-13 01:14] LABS: SERUM ETHYL ALCOHOL < 10 mg/dL
[2017-05-13 01:25] LABS: AMPHETAMINE NEGATIVE (500 ng/mL); BARBITURATES NEGATIVE (200 ng/mL); BENZODIAZEPINES NEGATIVE (150 ng/mL); BUPRENORPHINE NEGATIVE (10 ng/mL); COCAINE PRESUMPTIVE POSITIVE (150 ng/mL); METHADONE NEGATIVE (200 ng/mL); METHAMPHETAMINE NEGATIVE (500 ng/mL); OPIATES (MORPHINE) NEGATIVE (100 ng/mL); OXYCODONE NEGATIVE (100 ng/mL); PHENCYCLIDINE NEGATIVE (25 ng/mL); PROPOXYPHENE NEGATIVE (300 ng/mL); THC CANNABINOIDS NEGATIVE (50 ng/mL); TRICYCLIC ANTIDEPRESSANTS NEGATIVE (300 ng/mL)
[2017-05-14] VITALS (7 sets, daily range): BP systolic 116–180; BP diastolic 72–92
[2017-05-14 06:27] LABS: BASOPHIL (%) 0.5 % (0-1); EOSINOPHIL (%) 0.9 % (0-5); EOSINOPHIL COUNT 0.1 K/uL (0-0.3); HEMATOCRIT 30.7 % (36.0-46.0); HEMOGLOBIN 10.3 G/DL (11.9-15.5); IMMATURE GRANULOCYTE (%) 0.4 % (0.0-0.7); LYMPHOCYTE (%) 33.3 % (15-42); LYMPHOCYTE COUNT 2.8 K/uL (1.0-2.8); MCH 30.7 PG (29.0-34.0); MCHC 33.6 G/DL (30.0-36.0); MCV 91.6 FL (83-99); MONOCYTE (%) 8.6 % (3-12); MONOCYTE COUNT 0.7 K/uL (0-0.8); NEUTROPHIL (%) 56.3 % (45-76); NEUTROPHIL COUNT 4.8 K/uL (1.8-6.4); PLATELET COUNT 490 K/uL (156-360); RBC DIS.WIDTH-CV 15.6 % (11.8-14.6); RBC DIS.WIDTH-SD 51.2 % (39-53); RED BLOOD COUNT 3.35 M/uL (3.80-5.20); WHITE BLOOD COUNT 8.5 K/uL (4.1-10.2)
[2017-05-15 07:55] VITALS: BP 124/69
[2017-05-15] MEDS ORDERED: LISINOPRIL10 MG PO (14:01)
[2017-05-15 16:12] VITALS: BP 149/94
== END 2017-05-15 16:36 | disposition home or self-care (01) | DRG 71 ==
LOC: EME → EDBD 22:47 → EME 22:47 → EDOF 05-13 00:36 → 5EAST 05-13 00:36 → ENRESERV 05-13 00:38 → 5EAST 05-13 01:33
PROVIDERS: Emergency Medicine; Physician Assistant Medical
DX: G93.41 Metabolic encephalopathy (principal); N30.00 Acute cystitis without hematuria; E78.2 Mixed hyperlipidemia; C94.6 Myelodysplastic disease, not elsewhere classified; E86.0 Dehydration; F10.20 Alcohol dependence, uncomplicated; I10 Essential (primary) hypertension; I45.10 Unspecified right bundle-branch block; I69.354 Hemiplegia and hemiparesis following cerebral infarction affecting left non-dominant side; F17.200 Nicotine dependence, unspecified, uncomplicated; R47.01 Aphasia
CPT/HCPCS: 70450; 71045; 80047; 80048; 80076; 81003; 82140; 83605; 83690; 83735; 84484; 84999; 85025; 85610; 85730; 87040; 87077; 87086; 87186; 93005; 99281; 99285; G0480; J0360; J0696; J1644; J3411; J7030

== ENCOUNTER 2017-09-02 00:49 | Inpatient (IN) | payer OTHER ==
[2017-09-02] VITALS (21 sets, daily range): BP systolic 85–128; BP diastolic 53–77
[~2017-09-02] VITALS: Ht 170.2 cm; Wt 69.5 kg
[~2017-09-02 00:49] MED LIST changes: +BACLOFEN10 MG PO; +LEXAPRO5 MG PO; +LIPITOR40 MG PO; +LISINOPRIL10 MG PO; +PROVENTIL HFA6.7 GM IH; +SYSTANE 0.3-0.1 EACH BOTH EYES
[2017-09-02 01:39] LABS: BASOPHIL (%) 0.2 % (0-1); EOSINOPHIL (%) 0.1 % (0-5); HEMATOCRIT 27.7 % (36.0-46.0); HEMOGLOBIN 9.5 G/DL (11.9-15.5); IMMATURE GRANULOCYTE (%) 1.5 % (0.0-0.7); LYMPHOCYTE (%) 16.1 % (15-42); LYMPHOCYTE COUNT 2.4 K/uL (1.0-2.8); MCH 32.3 PG (29.0-34.0); MCHC 34.3 G/DL (30.0-36.0); MCV 94.2 FL (83-99); MONOCYTE (%) 7.8 % (3-12); MONOCYTE COUNT 1.2 K/uL (0-0.8); NEUTROPHIL (%) 74.3 % (45-76); NEUTROPHIL COUNT 11.2 K/uL (1.8-6.4); RBC DIS.WIDTH-CV 18.9 % (11.8-14.6); RBC DIS.WIDTH-SD 62.4 % (39-53); RED BLOOD COUNT 2.94 M/uL (3.80-5.20); WHITE BLOOD COUNT 15.1 K/uL (4.1-10.2)
[2017-09-02 01:43] LABS: PLATELET COUNT 446 K/uL (156-360)
[2017-09-02 01:45] LABS: INTER. NORMALIZED RATIO 1.1
[2017-09-02 01:47] LABS: PTT 30.1 SEC (25-37)
[2017-09-02 01:48] LABS: ALBUMIN 3.7 g/dL (3.2-4.8); CHLORIDE 97 mEq/L (99-109); POTASSIUM 3.7 mEq/L (3.7-5.4); SODIUM 128 mEq/L (136-147)
[2017-09-02 01:49] LABS: MAGNESIUM 2.1 mg/dL (1.3-2.7)
[2017-09-02 01:50] LABS: GLUCOSE 123 mg/dL (70-99); TOTAL PROTEIN 6.3 g/dL (6.4-8.3)
[2017-09-02 01:52] LABS: TOTAL BILIRUBIN 0.2 mg/dL (0.0-1.0)
[2017-09-02 01:53] LABS: SERUM ETHYL ALCOHOL < 10 mg/dL
[2017-09-02 01:54] LABS: ALKALINE PHOSPHATASE 88 IU/L (3-129); GFR ESTIMATE (CALCULATED) 27 mL/min/
[2017-09-02 01:55] LABS: UREA NITROGEN (BUN) 18 mg/dL (9-23)
[2017-09-02 01:56] LABS: AST (GOT) 21 IU/L (2-34)
[2017-09-02 01:57] LABS: ALT (GPT) 11 IU/L (3-49)
[2017-09-02 02:00] LABS: TROP-I INTERPRETATION NEGATIVE; TROPONIN-I 0.04 ng/mL (0.0-0.30)
[2017-09-02 03:52] LABS: APPEARANCE CLEAR ((CLEAR)); BILIRUBIN NEGATIVE; BLOOD NEGATIVE; COLOR YELLOW ((YELLOW)); GLUCOSE (STRIP) NEGATIVE; KETONES NEGATIVE; LEUKOCYTES LARGE; NITRITE NEGATIVE; PROTEIN (STRIP) NEGATIVE
[2017-09-02 03:54] LABS: BACTERIA NONE SEEN /HPF; EPITHELIAL CELLS RARE /HPF; MUCUS NONE SEEN /LPF; RED BLOOD CELLS 0-5 /HPF (0-5); UCUL ADDED? YES; WHITE BLOOD CELLS TNTC /HPF (0-5)
[2017-09-02 16:42] LABS: BASOPHIL (%) 0.3 % (0-1); EOSINOPHIL (%) 0.2 % (0-5); HEMATOCRIT 24.3 % (36.0-46.0); HEMOGLOBIN 8.1 G/DL (11.9-15.5); IMMATURE GRANULOCYTE (%) 0.9 % (0.0-0.7); LYMPHOCYTE (%) 21.1 % (15-42); LYMPHOCYTE COUNT 1.9 K/uL (1.0-2.8); MCH 32.4 PG (29.0-34.0); MCHC 33.3 G/DL (30.0-36.0); MCV 97.2 FL (83-99); MONOCYTE (%) 8.3 % (3-12); MONOCYTE COUNT 0.8 K/uL (0-0.8); NEUTROPHIL (%) 69.2 % (45-76); NEUTROPHIL COUNT 6.3 K/uL (1.8-6.4); NRBC (%) 0.3 /100 WBC (0-0); PLATELET COUNT 353 K/uL (156-360); RBC DIS.WIDTH-CV 19.2 % (11.8-14.6); RBC DIS.WIDTH-SD 65.3 % (39-53); WHITE BLOOD COUNT 9.2 K/uL (4.1-10.2)
[2017-09-02 17:05] LABS: ALBUMIN 2.9 G/DL (3.2-4.8); ALKALINE PHOSPHATASE 66 IU/L (3-129); ALT (GPT) 7 IU/L (3-49); AST (GOT) 14 IU/L (2-34); CHLORIDE 109 MEQ/L (99-109); GLUCOSE 134 mg/dL (70-99); HIGH-SENS C-REACTIVE PROTEIN 0.24 MG/DL (0.02-0.20); MAGNESIUM 1.6 mg/dl (1.3-2.7); PHOSPHORUS 2.3 mg/dL (2.5-4.9); POTASSIUM 3.8 MEQ/L (3.7-5.4); SODIUM 133 MEQ/L (136-147); TOTAL BILIRUBIN 0.2 MG/DL (0.0-1.0); TOTAL PROTEIN 4.9 G/DL (6.4-8.3); UREA NITROGEN (BUN) 13 mg/dL (9-23)
[2017-09-02 17:06] LABS: CREATININE 1.2 MG/DL (0.6-1.3); GFR ESTIMATE (CALCULATED) 49 mL/min/
[2017-09-03] VITALS (11 sets, daily range): BP systolic 78–182; BP diastolic 43–90
[2017-09-03 05:35] LABS: HEMATOCRIT 22.4 % (36.0-46.0); HEMOGLOBIN 7.4 G/DL (11.9-15.5); MCH 31.8 PG (29.0-34.0); MCV 96.1 FL (83-99); PLATELET COUNT 338 K/uL (156-360); RBC DIS.WIDTH-CV 19.4 % (11.8-14.6); RBC DIS.WIDTH-SD 65.1 % (39-53); RED BLOOD COUNT 2.33 M/uL (3.80-5.20); WHITE BLOOD COUNT 8.4 K/uL (4.1-10.2)
[2017-09-03 05:47] LABS: CHLORIDE 111 MEQ/L (99-109); GFR ESTIMATE (CALCULATED) > 59 mL/min/; GLUCOSE 104 mg/dL (70-99); POTASSIUM 3.8 MEQ/L (3.7-5.4); SODIUM 136 MEQ/L (136-147); UREA NITROGEN (BUN) 10 mg/dL (9-23)
[2017-09-03 06:04] LABS: VANCOMYCIN, TROUGH 9.2 MCG/ML (10-20)
[2017-09-03] MEDS ORDERED: LISINOPRIL20 MG PO (11:11)
[2017-09-03] MEDS ORDERED: ESCITALOPRAM OX20 MG PO (11:12)
[2017-09-04 00:44] VITALS: BP 182/91
[2017-09-04 04:52] VITALS: BP 154/80
[2017-09-04 05:46] LABS: BASOPHIL (%) 0.8 % (0-1); BASOPHIL COUNT 0.1 K/uL (0-0.1); EOSINOPHIL COUNT 0.1 K/uL (0-0.3); HEMOGLOBIN 8.5 G/DL (11.9-15.5); LYMPHOCYTE (%) 36.4 % (15-42); LYMPHOCYTE COUNT 2.9 K/uL (1.0-2.8); MCH 31.8 PG (29.0-34.0); MCV 93.6 FL (83-99); MONOCYTE (%) 9.3 % (3-12); MONOCYTE COUNT 0.7 K/uL (0-0.8); NEUTROPHIL (%) 51.5 % (45-76); PLATELET COUNT 412 K/uL (156-360); RBC DIS.WIDTH-CV 18.8 % (11.8-14.6); RED BLOOD COUNT 2.67 M/uL (3.80-5.20); WHITE BLOOD COUNT 7.9 K/uL (4.1-10.2)
[2017-09-04 06:16] LABS: ALBUMIN 2.6 G/DL (3.2-4.8); ALKALINE PHOSPHATASE 59 IU/L (3-129); ALT (GPT) 6 IU/L (3-49); AST (GOT) 13 IU/L (2-34); CHLORIDE 106 MEQ/L (99-109); CREATININE 0.9 MG/DL (0.6-1.3); GFR ESTIMATE (CALCULATED) > 59 mL/min/; GLUCOSE 90 mg/dL (70-99); HIGH-SENS C-REACTIVE PROTEIN 0.25 MG/DL (0.02-0.20); PHOSPHORUS 3.1 mg/dL (2.5-4.9); POTASSIUM 3.6 MEQ/L (3.7-5.4); SODIUM 136 MEQ/L (136-147); TOTAL PROTEIN 4.5 G/DL (6.4-8.3); UREA NITROGEN (BUN) 4 mg/dL (9-23)
[2017-09-04 06:17] LABS: MAGNESIUM 1.3 mg/dl (1.3-2.7); TOTAL BILIRUBIN 0.3 MG/DL (0.0-1.0)
[2017-09-04 07:20] VITALS: BP 180/90
[2017-09-04 12:01] VITALS: BP 150/76
[2017-09-04 16:47] VITALS: BP 112/68
[2017-09-04 19:48] VITALS: BP 160/84
[2017-09-05] VITALS (7 sets, daily range): BP systolic 145–190; BP diastolic 78–99
[2017-09-05 05:55] LABS: HEMATOCRIT 25.2 % (36.0-46.0); HEMOGLOBIN 8.7 G/DL (11.9-15.5); MCH 32.1 PG (29.0-34.0); MCHC 34.5 G/DL (30.0-36.0); PLATELET COUNT 376 K/uL (156-360); RBC DIS.WIDTH-SD 61.4 % (39-53); RED BLOOD COUNT 2.71 M/uL (3.80-5.20); WHITE BLOOD COUNT 6.6 K/uL (4.1-10.2)
[2017-09-05 06:34] LABS: CHLORIDE 102 MEQ/L (99-109); CREATININE 0.8 MG/DL (0.6-1.3); GFR ESTIMATE (CALCULATED) > 59 mL/min/; GLUCOSE 90 mg/dL (70-99); POTASSIUM 3.4 MEQ/L (3.7-5.4); SODIUM 136 MEQ/L (136-147); UREA NITROGEN (BUN) 4 mg/dL (9-23)
[2017-09-06 01:30] VITALS: BP 132/78
[2017-09-06 04:41] VITALS: BP 138/81
[2017-09-06 06:10] LABS: HEMATOCRIT 27.8 % (36.0-46.0); HEMOGLOBIN 9.5 G/DL (11.9-15.5); MCH 31.8 PG (29.0-34.0); MCHC 34.2 G/DL (30.0-36.0); PLATELET COUNT 400 K/uL (156-360); RBC DIS.WIDTH-SD 60.6 % (39-53); RED BLOOD COUNT 2.99 M/uL (3.80-5.20); WHITE BLOOD COUNT 7.5 K/uL (4.1-10.2)
[2017-09-06 06:32] LABS: CHLORIDE 98 MEQ/L (99-109); CREATININE 0.8 MG/DL (0.6-1.3); GFR ESTIMATE (CALCULATED) > 59 mL/min/; GLUCOSE 93 mg/dL (70-99); POTASSIUM 3.9 MEQ/L (3.7-5.4); SODIUM 134 MEQ/L (136-147); UREA NITROGEN (BUN) 5 mg/dL (9-23)
[2017-09-06 07:21] VITALS: BP 168/89
[2017-09-06 15:04] VITALS: BP 149/82
[2017-09-06] MEDS ORDERED: CIPRO500 MG PO (15:55)
== END 2017-09-06 17:01 | disposition home health service (06) | DRG 871 ==
LOC: EME → EDBD 00:49 → EME 00:49 → EDOF 06:17 → 4WEST 06:17 → ENRESERV 06:28 → ENRESERVDT 06:35 → ENRESERVTM 06:35 → ENRESERV 06:35 → 4WEST 07:12 → ENRESERV 09-03 08:37 → 5SOUTH 09-03 11:02 → ENPENDDIS 09-06 16:33 → 5SOUTH 09-06 17:01
PROVIDERS: Emergency Medicine; Internal Medicine; Surgery
DX: A41.9 Sepsis, unspecified organism (principal); R65.21 Severe sepsis with septic shock; G93.41 Metabolic encephalopathy; N17.9 Acute kidney failure, unspecified; I69.354 Hemiplegia and hemiparesis following cerebral infarction affecting left non-dominant side; C94.6 Myelodysplastic disease, not elsewhere classified; E87.1 Hypo-osmolality and hyponatremia; N39.0 Urinary tract infection, site not specified; F05 Delirium due to known physiological condition; F33.9 Major depressive disorder, recurrent, unspecified; K59.09 Other constipation; D64.9 Anemia, unspecified; F41.9 Anxiety disorder, unspecified; I10 Essential (primary) hypertension; J45.909 Unspecified asthma, uncomplicated; K44.9 Diaphragmatic hernia without obstruction or gangrene; N20.0 Calculus of kidney; R33.9 Retention of urine, unspecified; N89.8 Other specified noninflammatory disorders of vagina; R09.02 Hypoxemia; B96.20 Unspecified Escherichia coli [E. coli] as the cause of diseases classified elsewhere; G43.909 Migraine, unspecified, not intractable, without status migrainosus; Z87.440 Personal history of urinary (tract) infections; Z87.891 Personal history of nicotine dependence
CPT/HCPCS: 71045; 74176; 80048; 80053; 80202; 81003; 83605; 83735; 83880; 84100; 84145 90; 84484; 85025; 85025 91; 85027; 85610; 85730; 86141; 87040; 87070; 87075; 87076; 87086; 87185; 87205; 87641; 93005; 94799; 99202; 99281; 99285; G0480; J0696; J1644; J2543; J3370; J7030; J7040; J7050